=== PATIENT | male | born 1980 | race African-American/Black ===

== ENCOUNTER 2018-01-21 07:34 | Emergency (ER) | payer MEDICAID ==
[~2018-01-21] VITALS: Ht 180.3 cm; Wt 93.6 kg
[2018-01-21 07:41] VITALS: BP 169/90; Ht 180.3 cm; Wt 93.6 kg
[2018-01-21 08:36] LABS: BASOPHIL % 0.2 % (0-2); PLATELET COUNT 286 x10^3mcL (130-400); RED CELL DISTRIBUTION WIDTH 13.8 % (11.5-14.5)
[2018-01-21 08:38] LABS: CALCIUM 9.1 mg/dL (8.5-10.1); CARBON DIOXIDE 28.8 mmol/L (21-32); CHLORIDE SERUM 105 mmol/L (98-107); CREATININE SERUM 1.1 mg/dL (0.7-1.3); GFR1 > 60 mL/min; GLUCOSE SERUM 89 mg/dL (74-106); POTASSIUM SERUM 3.5 mmol/L (3.5-5.1); SODIUM SERUM 143 mmol/L (136-145)
[2018-01-21 08:42] LABS: ALBUMIN 3.9 g/dL (3.4-5.0); ALKALINE PHOSPHATASE 96 U/L (46-116); ALT/SGPT 22 U/L (16-63); AST/SGOT 14 U/L (15-37); BILIRUBIN TOTAL 0.63 mg/dL (0.20-1.00); URIC ACID 4.1 mg/dL (3.5-7.2)
[2018-01-21 08:43] LABS: TOTAL PROTEIN, SERUM 8.3 g/dL (6.4-8.2)
== END 2018-01-21 10:23 | disposition home or self-care (01) ==
LOC: ED 07:34
PROVIDERS: Emergency Medicine
DX: M10.9 Gout, unspecified (principal); G57.60 Lesion of plantar nerve, unspecified lower limb
CPT/HCPCS: 36415